=== PATIENT | male | born 1985 | race Asian ===

== ENCOUNTER 2017-07-20 13:25 | Emergency (ER) | payer OTHER ==
[~2017-07-20] VITALS: Ht 167.6 cm; Wt 104.3 kg
[2017-07-20 14:40] VITALS: Ht 167.6 cm; Wt 104.3 kg
[2017-07-20 19:30] VITALS: BP 160/100
== END 2017-07-20 19:30 | disposition home or self-care (01) ==
LOC: ED 13:25
DX: M10.9 Gout, unspecified (principal); I10 Essential (primary) hypertension; E78.00 Pure hypercholesterolemia, unspecified
CPT/HCPCS: Q0092

== ENCOUNTER 2018-10-29 20:35 | Emergency (ER) | payer OTHER ==
[~2018-10-29] VITALS: Ht 167.6 cm; Wt 92.1 kg
[2018-10-29 21:17] VITALS: Ht 167.6 cm; Wt 92.1 kg
[2018-10-29 23:06] VITALS: BP 154/99
== END 2018-10-29 23:00 | disposition home or self-care (01) ==
LOC: ED 20:35
DX: S31.21XA Laceration without foreign body of penis, initial encounter (principal); I10 Essential (primary) hypertension; E78.00 Pure hypercholesterolemia, unspecified; X58.XXXA Exposure to other specified factors, initial encounter; Y93.89 Activity, other specified; Y92.89 Other specified places as the place of occurrence of the external cause; Y99.8 Other external cause status
CPT/HCPCS: J2001

== ENCOUNTER 2019-07-10 11:06 | Inpatient (IN) | payer OTHER ==
[~2019-07-10] VITALS: Ht 167.6 cm; Wt 94.3 kg
[2019-07-10 11:11] VITALS: Ht 167.6 cm; Wt 94.3 kg
--- NOTE | 2019-07-10 11:11 | NUR ---
1 SYR 50ML DEXTROSE 50% IVP LT AC, VERBAL ORDER DR. JERNIGAN.
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
--- NOTE | 2019-07-10 11:14 | NUR ---
DEXTROSE 10% IVP LT AC, VERBAL ORDER DR. JERNIGAN.
--- NOTE | 2019-07-10 11:15 | NUR ---
BG 28, DR. JERNIGAN MADE AWARE.
--- NOTE | 2019-07-10 11:21 | NUR ---
EKG IN PROGRESS.
--- NOTE | 2019-07-10 11:37 | NUR ---
XRAY AT BEDSIDE.
[2019-07-10 11:41] LABS: BASOPHIL % 0.2 % (0-2); RED CELL DISTRIBUTION WIDTH 13.7 % (11.5-14.5)
--- NOTE | 2019-07-10 12:12 | NUR ---
1 SYR 50ML DEXTROSE 50% IVP LT AC, VERBAL ORDER DR. JERNIGAN.
[2019-07-10 12:18] LABS: PLATELET COUNT 513 x10^3mcL (130-400)
--- NOTE | 2019-07-10 12:28 | NUR ---
PT IS AAOX4, AND HAS NO COMPLAINTS AT THIS TIME. VSS. RESP E/U. WILL CONTINUE TO MONITOR. NO FURHTER ORDERS AT THIS TIME.
[2019-07-10 12:36] LABS: ALBUMIN 3.9 g/dL (3.4-5.0); BILIRUBIN TOTAL 0.18 mg/dL (0.20-1.00); CALCIUM 8.9 mg/dL (8.5-10.1); CARBON DIOXIDE 26.4 mmol/L (21-32); POTASSIUM SERUM 3.8 mmol/L (3.5-5.1)
[2019-07-10 12:37] LABS: TOTAL PROTEIN, SERUM 9.1 g/dL (6.4-8.2)
[2019-07-10] MEDS ORDERED: GLIPIZIDE10 M2 PO (13:03)
[2019-07-10 13:07] LABS: microscopic required? YES; urine erythrocyte TRACE (NEGATIVE)
--- NOTE | 2019-07-10 13:19 | NUR ---
PT GIVEN SANDWICH AND JUICE FOR BG 62, VERBAL ORDER INCREASE DEXTROSE 10% TO 100ML/HR. PT IS AAOX4, DENIES ANY COMAPLAINTS. VSS. RESP E/U. WILL CONTINUE TO MONITOR. DR. JERNIGAN AT BEDSIDE.
[2019-07-10] MEDS ORDERED: LISINOPRIL40 MG PO (13:27)
[2019-07-10] MEDS ORDERED: STRATTERA80 MG PO (13:27)
[2019-07-10] MEDS ORDERED: ACT30 (13:28)
[2019-07-10] MEDS ORDERED: ALLOPURINOL100 MG PO (13:28)
[2019-07-10] MEDS ORDERED: FENOFIBRATE145 M1 PO (13:28)
[2019-07-10] MEDS ORDERED: CHLORTHALIDONE25 MG (13:29)
[2019-07-10] MEDS ORDERED: ASPIR 8181 MG PO (13:29)
--- NOTE | 2019-07-10 13:34 | NUR ---
PT SITTING IN POSITION OF COMFORT WATCHING TV ON PHONE. RESP E/U. VSS. WILL CONTINUE TO MONITOR
--- NOTE | 2019-07-10 14:17 | NUR ---
PT GIVEN LUNCH ANUJ, PT SITTING IN UPRIGHT POSITION. VSS. RESP E/U. WILL CONTINUE TO MONITOR.
--- NOTE | 2019-07-10 14:25 | NUR ---
REPORT GIVEN TO JOSE RN TO ASSUME CARE OF PT
--- NOTE | 2019-07-10 14:44 | NUR ---
RECEIVED PT FROM ER, PT ADMIT FOR HYPOGLYCEMIA, PT IS A/O X4, VERBAL RESPONSIVE. LUNG SOUND CLEAR BILATERAL, NO COUGH, NO SOB. PT DENY ANY CHEST PAIN OR DISCOMFORT. BOWEL SOUND PRESENT ALL 4 QUADRANTS, NO DISTENTION, NO TENDER. PEDAL PULSE PRESENT BOTH FEET, NO EDEMA, IV AT RIGHT AC, NO LEAKING, NO INFILTRAITON. RECHECK THE BS. IS 92 AT THIS MOMENT. ALL ADLS ASSIST, ALL NEED MET, CALL LIGHT IN REACH, WILL CONTINUE TO MONITOR.
--- NOTE | 2019-07-10 14:55 | NUR ---
RECEIVED REPORT FROM RILEY RN RESOURCE NURSE, PT RESTING IN BED IN NO ACUTE DISTRESS, RESP E/U, NO SOB/COUGH, DENIED PAIN/DISCOMFORT, DENIED CP/PALPITATION, DENIED DAMON/DIZZINESS, PT MADE AWARE OF MONITOR I&O, URINAL PROVIDED AND INTRUCTION GIVEN, VERBALLY UNDERSTANDING, MEDSURG, AMBULATORY, CONTINENT, PALP PULSES, SKIN COLD/MOIST/APPROPRIATE W/ ETHNICITY, NO FACIAL DROOP/SLUURED SPECH, PERRLA, NO REDNESS/DRAINAGE TO EENT, AXOX4, ABLE TO MAKE NEEDS KNOWN, ALL NEEDS ADDRESSED AT THIS TIME, SAFETY PROTOCOL INITIATED, COMFORT MEASUREMENT PROVIDED, CONTINUE TO MONITOR
[2019-07-10 15:12] VITALS: BP 130/75
--- NOTE | 2019-07-10 15:27 | NUR ---
PT REPOTED SLIGHTLY COLD, WARM BLANKET PROVIDED, PT COMFORTABLE IN BED AT THIS TIME, VISITED BY FAMILY MEMBERS, QUESTIONS ASKED AND ANSWERED, NO FURTHER CONCERNS NEEDED AT THIS TIME, PT MADE AWARE OF REPORTING S/S OF HYPOGLYCEMIA, VERBALL UNDERSTANDING, CHARGE NURSE EILEEN OBANDO AWARE, ALL NEEDS ADDRESSED, CONTINUE TO MONITOR
--- NOTE | 2019-07-10 17:52 | NUR ---
PT RESTING IN BED, IN NO ACUTE DISTRESS, VERBAL, ABLE TO MAKE NEEDS KNOWN, RESP EVEN, NO SOB/COUGH, DENIED PAIN/DISCOMFORT, DENIED CP/PALPITATION, TOLERATED DINNER WELL, IV PATENT AND INFUSING WELL, DRESSING CDI, ALL NEEDS ADDRESSED, SAFETY PROTOCOL FOLLOWED, WILL ENDORSE TO ONCOMING RN
--- NOTE | 2019-07-10 19:30 | NUR ---
PT RESTING IN BED AT THIS TIME. DENIES PAIN OR DISCOMFORT. PT A/O X4, CALM AND COOPERATIVE. PT MED SURG, DENIES CP, NV, DIZZINESS, OR PALPATATIONS. PALPABLE PULSES, NO EDEMA NOTED AT THIS TIME. BREATHING E/U ON RA, DENIES SOB. ABD SOFT ABD ROUND, DENIES PAIN TO PALPATION. GENERALIZED WEAKNESS, AMBULATORY AT BASELINE. IV TO RAC, INTACT AND INFUSING. BED AT LOWEST POSITION. CALL LIGHT WITHIN REACH. WILL CONTINUE TO MONITOR.
[2019-07-10 20:23] VITALS: BP 122/49
--- NOTE | 2019-07-11 06:15 | NUR ---
PT RESTING IN BED AT THIS TIME. DENIES PAIN OR DISCOMFORT. BREATHING E/U ON RA. NO SIGNS OF ACUTE DISTRESS AT THIS TIME. ALL NEEDS AND CONCERNS ADDRESSED THIS SHIFT. BED AT LOWEST POSITION. CALL LIGHT WITHIN REACH. WILL ENDORSE TO DAY NURSE.
[2019-07-11 06:34] VITALS: BP 126/79
[2019-07-11 06:38] VITALS: BP 113/65
[2019-07-11 06:54] LABS: BASOPHIL % 0.5 % (0-2); RED CELL DISTRIBUTION WIDTH 14.1 % (11.5-14.5)
[2019-07-11 06:57] LABS: CALCIUM 8.8 mg/dL (8.5-10.1); CARBON DIOXIDE 24.2 mmol/L (21-32); CREATININE SERUM 1.9 mg/dL (0.7-1.3); MAGNESIUM 2.2 mg/dL (1.8-2.4); POTASSIUM SERUM 4.3 mmol/L (3.5-5.1)
--- NOTE | 2019-07-11 07:00 | NUR ---
RECEIVED REPORT FROM COREY MARINELLI AT BEDSIDE, PT SLEEPING IN BED IN NO ACUTE DISTRESS
[2019-07-11 07:55] LABS: PLATELET COUNT 479 x10^3mcL (130-400)
--- NOTE | 2019-07-11 07:56 | NUR ---
PT RESTING IN BED IN NO ACUTE DISTRESS, AXOX4, PERRLA, CALM AND COOPERATIVE, ABLE TO MAKE NEEDS KNOWN, NO REDNESS/DRAINAFE EENT, NO FACIAL DROOP/SLURRED SPEECH, RESP E/U, RA, LUNGS CTAB, NO SOB/COUGH, DENIED PAIN/DISCOMFORT, DENIED CP/PALPITATION, DENIED DAMON/DIZZINESS, MEDSURG, AMBULATORY, CONTINENT, PALP PULSES, SKIN C/D/W AND APPROPRIATE W/ ETHNICITY, ABD ROUND AND NON TENDER TO TOUCH, BS ACTIVE X 4, IV PATENT AND INFUSING WELL, DRESSIGN CDI, ALL NEEDS ADDRESSED AT THIS TIME, SAFETY PROTOCOL INITIATED, COMFORT MEASUREMENT PROVIDED, CONTINUE TO MONITOR
[2019-07-11 09:23] VITALS: BP 110/41
--- NOTE | 2019-07-11 15:39 | NUR ---
PATIENT STATING THAT HE WANTS TO LEAVE THE HOSPITAL. PATIENT DOES NOT WANT TO WAIT TO SEE THE PHYSICIAN. PATIENT EDUCATED ON THE IMPORTANCE OF CONTINUING WITH INPATIENT TREATMENT. PATIENT INSISTS THAT HE WANTS TO LEAVE AND IS SIGNING AMA PAPERWORK. PATIENT INSTRUCTED TO FOLLOW UP WITH PRIMARY CARE PROVIDER. IV REMOVED INTACT. PATIENT LEAVING HOSPITAL WITH NIECE AND SON. PATIENT ESCORTED TO THE LOBBY BY NILSA.
== END 2019-07-11 10:26 | disposition left against medical advice (07) | DRG 812 ==
LOC: ED 11:06 → MU 13:57
PROVIDERS: Emergency Medicine; ADMIT Internal Medicine Pulmonary Disease
DX: T38.3X1A Poisoning by insulin and oral hypoglycemic [antidiabetic] drugs, accidental (unintentional), initial encounter (principal); E11.649 Type 2 diabetes mellitus with hypoglycemia without coma; I10 Essential (primary) hypertension; E78.00 Pure hypercholesterolemia, unspecified; E78.5 Hyperlipidemia, unspecified; Z53.21 Procedure and treatment not carried out due to patient leaving prior to being seen by health care provider; F17.200 Nicotine dependence, unspecified, uncomplicated; Z72.89 Other problems related to lifestyle; Z71.6 Tobacco abuse counseling; Y92.89 Other specified places as the place of occurrence of the external cause
CPT/HCPCS: 82962; 99406; G0378; J3490; Q0092

== ENCOUNTER 2020-03-14 22:23 | Emergency (ER) | payer OTHER ==
[~2020-03-14] VITALS: Ht 167.6 cm; Wt 104.3 kg
[~2020-03-14 22:23] MED LIST: ACT30; ALLOPURINOL100 MG PO; ASPIR 8181 MG PO; CHLORTHALIDONE25 MG; FENOFIBRATE145 M1 PO; GLIPIZIDE10 M2 PO; LISINOPRIL40 MG PO; STRATTERA80 MG PO
[2020-03-14 22:24] VITALS: Ht 167.6 cm; Wt 104.3 kg
[2020-03-15 00:51] LABS: BASOPHIL % 0.6 % (0-2); CALCIUM 8.6 mg/dL (8.5-10.1); CARBON DIOXIDE 20.4 mmol/L (21-32); CREATININE SERUM 2.1 mg/dL (0.7-1.3); PLATELET COUNT 381 x10^3mcL (130-400); POTASSIUM SERUM 4.1 mmol/L (3.5-5.1); RED CELL DISTRIBUTION WIDTH 15.3 % (11.5-14.5)
[2020-03-15 00:54] LABS: ALBUMIN 3.6 g/dL (3.4-5.0); BILIRUBIN TOTAL 0.19 mg/dL (0.20-1.00); TOTAL PROTEIN, SERUM 8.8 g/dL (6.4-8.2)
[2020-03-15 01:30] VITALS: BP 123/64
== END 2020-03-15 01:31 | disposition left against medical advice (07) ==
LOC: ED 22:23
PROVIDERS: Student in an Organized Health Care Education/Training Program
DX: R07.81 Pleurodynia (principal); N17.9 Acute kidney failure, unspecified; D72.829 Elevated white blood cell count, unspecified; R74.0 Nonspecific elevation of levels of transaminase and lactic acid dehydrogenase [LDH]; I10 Essential (primary) hypertension; E11.9 Type 2 diabetes mellitus without complications; E78.00 Pure hypercholesterolemia, unspecified; F17.210 Nicotine dependence, cigarettes, uncomplicated

== ENCOUNTER 2020-04-09 15:37 | Emergency (ER) | payer OTHER ==
[~2020-04-09] VITALS: Ht 167.6 cm; Wt 112.5 kg
[2020-04-09 15:44] VITALS: BP 164/106; Ht 167.6 cm; Wt 112.5 kg
== END 2020-04-09 16:20 | disposition home or self-care (01) ==
LOC: ED 15:37
DX: K06.8 Other specified disorders of gingiva and edentulous alveolar ridge (principal); I10 Essential (primary) hypertension; E11.9 Type 2 diabetes mellitus without complications; E78.00 Pure hypercholesterolemia, unspecified

== ENCOUNTER 2020-05-11 12:41 | Inpatient (IN) | payer OTHER ==
[~2020-05-11] VITALS: Ht 167.6 cm; Wt 111.8 kg
[2020-05-11 12:55] VITALS: Ht 167.6 cm; Wt 111.8 kg
[2020-05-11 14:21] LABS: PLATELET COUNT 371 x10^3mcL (130-400)
[2020-05-11 14:33] LABS: RED CELL DISTRIBUTION WIDTH 20.5 % (11.5-14.5)
[2020-05-11 14:44] LABS: BILIRUBIN TOTAL 4.4 mg/dL (0.20-1.00); CALCIUM 7.5 mg/dL (8.5-10.1); CREATININE SERUM 2.7 mg/dL (0.7-1.3); TOTAL PROTEIN, SERUM 7.8 g/dL (6.4-8.2)
[2020-05-11 14:47] LABS: ALBUMIN 2.6 g/dL (3.4-5.0); POTASSIUM SERUM 2.9 mmol/L (3.5-5.1)
[2020-05-11 15:28] LABS: BAND NEUTROPHIL 0 % (0-10); BASOPHIL 0 % (0-2); MONOCYTE 10 % (0-7); SEGMENTED NEUTROPHILS 9 % (37-75); rbc morphology (normal/abnorm) ABNORMAL (NORMAL)
[2020-05-11] MEDS ORDERED: ATORVASTATIN CA80 M1 (15:35)
[2020-05-11 18:26] VITALS: BP 100/51
[2020-05-11 21:02] VITALS: BP 108/62
[2020-05-12] VITALS (8 sets, daily range): BP systolic 93–128; BP diastolic 51–85
[2020-05-12 06:36] LABS: BILIRUBIN TOTAL 5.3 mg/dL (0.20-1.00); CALCIUM 7.4 mg/dL (8.5-10.1); CARBON DIOXIDE 25.6 mmol/L (21-32); CREATININE SERUM 3.7 mg/dL (0.7-1.3); MAGNESIUM 2.4 mg/dL (1.8-2.4); POTASSIUM SERUM 3.1 mmol/L (3.5-5.1); TOTAL PROTEIN, SERUM 7.6 g/dL (6.4-8.2)
[2020-05-12 07:12] LABS: ALBUMIN 2.6 g/dL (3.4-5.0); CHOLESTEROL/HDL RATIO 28.3
[2020-05-12 08:38] LABS: PLATELET COUNT 351 x10^3mcL (130-400)
[2020-05-12 08:42] LABS: RED CELL DISTRIBUTION WIDTH 20.5 % (11.5-14.5)
[2020-05-12 10:25] LABS: BAND NEUTROPHIL 8 % (0-10); BASOPHIL 0 % (0-2); MONOCYTE 6 % (0-7); SEGMENTED NEUTROPHILS 76 % (37-75)
[2020-05-12 10:27] LABS: PLATELET MORPHOLOGY PLATELETS NORMAL; rbc morphology (normal/abnorm) ABNORMAL (NORMAL)
[2020-05-12 10:28] LABS: target cell (codocyte) 1+
[2020-05-12 16:50] LABS: CALCIUM 7.6 mg/dL (8.5-10.1); CARBON DIOXIDE 23.9 mmol/L (21-32); POTASSIUM SERUM 3.3 mmol/L (3.5-5.1)
[2020-05-12 17:08] LABS: CREATININE SERUM 4.3 mg/dL (0.7-1.3)
[2020-05-13 05:29] VITALS: BP 114/62
[2020-05-13 07:30] LABS: PLATELET COUNT 356 x10^3mcL (130-400)
[2020-05-13 07:54] LABS: CALCIUM 7.8 mg/dL (8.5-10.1); CARBON DIOXIDE 22.4 mmol/L (21-32); PHOSPHOROUS 2.6 mg/dL (2.5-4.9); POTASSIUM SERUM 3.2 mmol/L (3.5-5.1)
[2020-05-13 08:01] LABS: CREATININE SERUM 4.8 mg/dL (0.7-1.3)
[2020-05-13 08:08] LABS: BILIRUBIN TOTAL 6.9 mg/dL (0.20-1.00); CALCIUM 7.7 mg/dL (8.5-10.1); CARBON DIOXIDE 24.3 mmol/L (21-32); MAGNESIUM 2.6 mg/dL (1.8-2.4); POTASSIUM SERUM 3.2 mmol/L (3.5-5.1); TOTAL PROTEIN, SERUM 7.6 g/dL (6.4-8.2)
[2020-05-13 08:17] LABS: RED CELL DISTRIBUTION WIDTH 20.9 % (11.5-14.5)
[2020-05-13 08:35] LABS: ALBUMIN 2.9 g/dL (3.4-5.0); CREATININE SERUM 4.8 mg/dL (0.7-1.3)
[2020-05-13 08:48] VITALS: BP 122/65
[2020-05-13 12:14] VITALS: BP 123/63
[2020-05-13 13:57] LABS: UA SPECIFIC GRAVITY <=1.005 (1.005-1.035); microscopic required? YES; urine erythrocyte 2+ (NEGATIVE)
[2020-05-13 14:40] LABS: BAND NEUTROPHIL 2 % (0-10); MONOCYTE 5 % (0-7); SEGMENTED NEUTROPHILS 76 % (37-75)
[2020-05-13 14:41] LABS: rbc morphology (normal/abnorm) ABNORMAL (NORMAL)
[2020-05-13 17:10] VITALS: BP 121/69
[2020-05-13 20:42] VITALS: BP 128/63
[2020-05-14 05:43] VITALS: BP 135/65
[2020-05-14 07:37] LABS: PLATELET COUNT 375 x10^3mcL (130-400)
[2020-05-14 07:40] LABS: RED CELL DISTRIBUTION WIDTH 20.1 % (11.5-14.5)
[2020-05-14 08:00] LABS: BILIRUBIN TOTAL 9.3 mg/dL (0.20-1.00); CALCIUM 8.1 mg/dL (8.5-10.1); CARBON DIOXIDE 22.8 mmol/L (21-32); MAGNESIUM 2.5 mg/dL (1.8-2.4); POTASSIUM SERUM 3.2 mmol/L (3.5-5.1); TOTAL PROTEIN, SERUM 7.9 g/dL (6.4-8.2)
[2020-05-14 08:16] LABS: ALBUMIN 2.9 g/dL (3.4-5.0)
[2020-05-14 08:18] LABS: CREATININE SERUM 5.3 mg/dL (0.7-1.3)
[2020-05-14 09:04] VITALS: BP 126/66
[2020-05-14 09:05] VITALS: BP 126/66
[2020-05-14 12:11] LABS: BAND NEUTROPHIL 1 % (0-10); MONOCYTE 4 % (0-7); SEGMENTED NEUTROPHILS 83 % (37-75)
[2020-05-14 12:12] LABS: rbc morphology (normal/abnorm) ABNORMAL (NORMAL)
[2020-05-14 12:13] LABS: target cell (codocyte) 1+
== END 2020-05-14 10:43 | disposition left against medical advice (07) | DRG 53 ==
LOC: ED 12:41 → DU 15:14
PROVIDERS: Emergency Medicine; Internal Medicine; ADMIT Hospitalist; ATTEND Hospitalist
PROC: 30233N1 Transfusion of Nonautologous Red Blood Cells into Peripheral Vein, Percutaneous Approach (ICD-10-PCS; principal; 2020-05-12)
DX: R56.9 Unspecified convulsions (principal); K76.7 Hepatorenal syndrome; N17.9 Acute kidney failure, unspecified; E11.22 Type 2 diabetes mellitus with diabetic chronic kidney disease; N18.4 Chronic kidney disease, stage 4 (severe); K70.9 Alcoholic liver disease, unspecified; E87.8 Other disorders of electrolyte and fluid balance, not elsewhere classified; D64.9 Anemia, unspecified; E87.1 Hypo-osmolality and hyponatremia; E87.6 Hypokalemia; D72.829 Elevated white blood cell count, unspecified; E78.00 Pure hypercholesterolemia, unspecified; F17.210 Nicotine dependence, cigarettes, uncomplicated; F10.10 Alcohol abuse, uncomplicated; E78.5 Hyperlipidemia, unspecified; L03.90 Cellulitis, unspecified; I12.9 Hypertensive chronic kidney disease with stage 1 through stage 4 chronic kidney disease, or unspecified chronic kidney disease; Z20.828 Contact with and (suspected) exposure to other viral communicable diseases; Z79.899 Other long term (current) drug therapy
CPT/HCPCS: G0378; G0480; J1940; J2405; J2543; J3475; J3480; J7030; P9016; P9047; Q0092; Q0163